=== PATIENT | female | born 1960 | race Caucasian/White ===

== ENCOUNTER 2019-11-11 07:01 | Observation (INO) | payer BC ==
[~2019-11-11] VITALS: Ht 177.8 cm; Wt 79.4 kg
[~2019-11-11 07:01] MED LIST: ALAWAY10 ML OPHTHALMIC; ASPIRIN325 PO; FISH OIL 1,0001 EAC9 PO; MULTIVITAMINS1 EAC7 PO; PEPCID20 MG PO; VITAMIN D325 MC3 PO; ZYRTEC10 M5 PO
[2019-11-11 08:26] VITALS: BP 129/76
--- NOTE | 2019-11-11 11:52 | H ---
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 HISTORY OF PRESENT ILLNESS: The patient is a 59-year-old who underwent laparoscopic appendectomy for acute appendicitis on the 10/16/2019. The patient had an uneventful recovery. The patient had fairly classic preop symptoms. Her appendix was inflamed and also fairly enlarged on CT scan preoperatively. 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 The path report describes approximately 70% of the mucosa contained the lesion, was also involving the proximal resection margin. The patient has not had any prior colon issues. She has had colonoscopy in the past. The patient underwent colonoscopy today and says she has already received a bowel prep. She is recommended to proceed with partial right colectomy to ensure that the finding of the low grade mucinous neoplasia is fully removed. The colonoscopy is done today reportedly by the patient to be normal. PAST MEDICAL HISTORY: The patient does not have any heart disease. The patient does not have any high blood pressure, no diabetes. No bleeding issue. No blood clot. No history of lung disease. No history of liver disease. No history of kidney disease. The patient did have paroxysmal atrial fibrillation in the past and this was diagnosed in 2009. She has not had any medication for atrial fib for about 5 years now. She has been in sinus rhythm. Two years ago, the patient had some tachycardia. She went to the ER and she was found to be in normal sinus rhythm. The patient has some family history of atrial fibrillation. There is no family history of colon cancer. Grandmother has some minor colon issues. FAMILY HISTORY: There is heart disease in the family. PAST SURGICAL HISTORY: The patient has had wisdom tooth removed; treatment of varicose veins, endovenous procedure and also treatment for deviated septum. The patient has a history of GERD. MEDICATIONS AND ALLERGIES: She is not on any medications, not allergic to anything. 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 She does not smoke or [facility] [address] [place] [address] HISTORY AND PHYSICAL Name: CARMEN MARION Room #: [facility] M.R.#: [id number] Admission: Attend Phys: Godfrey Sevilla MD Discharge: Date of : 64 Report #: [id number]. REVIEW OF SYSTEMS: No chest pain. No shortness of breath. No tachycardia. No numbness or weakness. The patient is eating well. Bowels are working. PHYSICAL EXAMINATION: GENERAL: The patient is a well-nourished female in no acute distress. HEENT: Pupils react to light. Extraocular muscles are intact. Sclerae are nonicteric. LUNGS: Clear to auscultation. HEART: Regular rate and rhythm. No murmur or gallop. ABDOMEN: Soft, nondistended, nontender. Her incision has healed well from the laparoscopic appendectomy. EXTREMITIES: No cyanosis, clubbing or edema. Motor and sensory exams are unremarkable. IMPRESSION AND RECOMMENDATION: The patient is a 59-year-old who had an acute appendicitis that was treated with laparoscopic appendectomy. The specimen came back with appendix containing low-grade mucinous neoplasia approximately 70% of the mucosa, also involving the proximal margin. The patient is recommended to have further resection of the right colon, likely removing of the cecum and resecting of the terminal ileum performing ileocolostomy. I do not think that the patient can have just cecectomy without having to remove the ileocecal valve. The patient understands this. Risk of bleeding and infection was discussed. Risk of anastomotic leak was discussed. The patient understands the procedure and wishes to proceed. The patient had bowel prep on Sunday and she is going to stay on her clear liquids and come again for surgery tomorrow. <ELECTRONICALLY SIGNED> By: Godfrey Sevilla MD 11/11/19 1152 [id number] Godfrey Sevilla MD /nt
[2019-11-11 13:00] VITALS: BP 113/60
[2019-11-11 16:31] VITALS: BP 122/65
[2019-11-11 18:54] VITALS: BP 118/66
[2019-11-12 03:47] VITALS: BP 99/64
--- NOTE | 2019-11-12 03:53 | NUR ---
Assumed pt care at 1900. A/OX4, VSS.Up ad stephen on hallway several times before HS. C/o pain to abd 5/10 medicated with Fentanyl/Simpson interchangeably with relief reported. No N/V or passing flatus yet. IVF infusing via RFA w/o problems. Pt has 3 midline lap sites on abd covered w/bandaids and one on RLQ covered in gauze C/D/I. Call light/personal items within reach, encouraged to call as needed for help. Resting at this time, will continue to monitor pt.
[2019-11-12 07:10] VITALS: BP 118/64
[2019-11-12] MEDS ORDERED: NORCO 5-325 TA1 EAC1 PO (14:07)
[2019-11-12 15:00] VITALS: BP 118/64
--- NOTE | 2019-11-12 15:37 | NUR ---
Assumed pt care this am pt is up ad stephen and passing gas. Was on clear liquids then progressed to full liquids and this was tolerated well. Pt has been ambulating the halls with a steady gait. No nausea or vomiting has been noted, Lap sites are c/d/i, DC intructions and prescriptions given. POC followed with no signs or verbalizations of distress have been noted. IV removed. Pain was managed with medication. Pt is now dc
--- NOTE | 2019-11-17 14:07 | PATH ---
[facility] [place] [address] PATHOLOGY RPT PROCEDURE Name: CARMEN MARION Room #: 448-P [facility] Luo#: [id number] Admission: 11/11/19 Date of : 64 Discharge: 11/12/19 Report #: [id number] Path Case #: [id number] [facility] Accession Number: [id number] . 01 Material submitted: . colon - TIE ON APPENDICEAL ORIFICE NEXT TO APPENDIX STAPLE PARTIAL RIGHT COLON. Modifiers: right . 01 Clinical history: . Tumor of appendix . 02 Diagnosis: Small and large bowel "subtotal right hemicolectomy": - NEGATIVE FOR RESIDUAL CARCINOMA. - Focal fat necrosis, foreign body giant cell reaction, and acute and chronic inflammation involving soft tissue at appendiceal stump. . Lymph nodes, "mesenteric - eleven", excision: - Reactive follicular lymphoid hyperplasia. - Negative for metastatic neoplasm. - Please see comment. LB 11/17/2019 1335 Local . 02 Comment: The patient's history of a low grade appendiceal mucinous neoplasm, diagnosed at the time of appendectomy at an outside facility is noted. According to the outside report neoplasm involved the appendiceal/proximal margin. Evaluation of the margin revealed no residual neoplasm, and there is no evidence of neoplastic disease within the specimen or the eleven sampled lymph nodes. (MLK/db; 11/14/2019) . 02 Electronically signed: . Cata De La Rosa MD, Pathologist NPI- [id number] . 01 Gross description: . The specimen is received in formalin, labeled "Carmen Marion, partial right colon, tie on the appendiceal orifice next to appendix stapled line". Received is a partial right hemicolectomy specimen consisting of a segment of small bowel measuring 4.3 cm in length by 2.5 cm in diameter attached to a segment of cecum measuring 7.5 cm in length and ranges in diameter from 3.5 to 4.5 cm. Both margins are stapled closed. The serosal surface of the small bowel is pink-art and smooth in appearance. The serosal surface of the colon is pink-art in appearance with overlying adhesions near the distal margin. There is a suture present near the previous appendectomy site, which has a staple [place] [address] PATHOLOGY RPT PROCEDURE Name: CARMEN MARION Room #: 448-P [facility] Amol M.RCeli#: [id number] Admission: 11/11/19 Date of : 64 Discharge: 11/12/19 Report #: [id number] Path Case #: [id number] pericolic fat measures up to 3.5 cm in thickness. The mesenteric margin is inked orange. The specimen is opened along the antimesenteric line and placed into formalin for overnight fixation prior to sectioning. ([facility]; 11/11/2019) . After overnight fixation, further opening of the specimen reveals light sierra mucosa with normal architectural folds within the small bowel. The ileocecal valve is pale sierra and slightly lipomatous in appearance. The colonic mucosa is light sierra to sierra-green in appearance with normal architectural folds. No distinct nodules or lesions are noted grossly. Extensive dissection and palpation of the attached pericolic and mesenteric fat reveals numerous lymph nodes ranging in size from 0.2 to 0.5 cm in maximum dimensions. The specimen is submitted representatively as follows: . A1 proximal margin, en face A2 distal margin, en face A3 perpendicular section through mesenteric margin A4-A8 entire staple line at previous appendectomy site A9 small bowel mucosa A10 ileocecal valve A11 colonic mucosa A12-A13 intact lymph nodes A14 one bisected lymph node. ([facility]; 11/12/2019) QA/QA 11/17/2019 1335 Local . 02 Pathologist provided ICD-10: K55.069, K52.9, R59.9, D12.1 . 02 CPT . 382639 Specimen Comment: A courtesy copy of this report has been sent to [phone], [phone] Specimen Comment: [phone] Specimen Comment: Report sent to / DR LAFLEUR Performed at: 01 [facility] [address] [id number] MD Kwan Chambers MD Phone: [phone] Performed at: 02 [place] [id number] [address] [id number] MD Laith Davenport MD Phone: [phone]
--- NOTE | 2019-11-19 15:34 | O ---
[facility] Malia [address]ultz [facility] [place] [address] OPERATIVE REPORT Name: CARMEN MARION Room #: 448-P [facility] M..#: [id number] Admission: 11/11/19 Attend Phys: Godfrey Sevilla MD Discharge: 11/12/19 Date of : 64 Report #: [id number] THIS REPORT FOR: cc: Jerson Levy MD,Jerson Sevilla,Godfrey Pizarro MD ~ CC: Jerson Sevilla DATE OF SERVICE: 11/11/2019 PREOPERATIVE DIAGNOSIS: Low-grade mucinous neoplasia of the appendix, status post laparoscopic appendectomy with positive proximal margin. POSTOPERATIVE DIAGNOSIS: Low-grade mucinous neoplasia of the appendix, status post laparoscopic appendectomy with positive proximal margin. PROCEDURES PERFORMED: Laparoscopic-assisted right partial colectomy. ANESTHESIA: General. SURGEON: Godfrey Sevilla MD COMPLICATIONS: None. ESTIMATED BLOOD LOSS: 10 mL. DESCRIPTION OF PROCEDURE: The patient did receive preoperative IV antibiotic. Abdomen was prepped and draped in sterile fashion. The patient voided before surgery and no Cannon was placed. Timeout was performed. A 0.25% Marcaine was used to anesthetize the skin and subcutaneous tissue just above the umbilicus. I wanted to avoid the previous fascia opening inferior to the umbilicus. The fascia above the umbilicus was identified, grasped with hemostat. This was then opened under visualization, 0 Vicryl suture placed on the fascia. Veress needle was then placed through the peritoneum. Abdominal cavity was insufflated with CO2. After creating pneumoperitoneum, an 11 mm trocar was placed into the pneumoperitoneum. No harm to underlying tissue. The patient's previous 5 mm trocar was used for a laparoscopic appendectomy, was utilized for the 5 mm trocar. The patient's right colon was identified fairly flexible. There was some adhesion of the proximal right colon to the abdominal wall. These adhesions were fairly elongated and lengthy and this adhesions were taken down. The right colon was then mobilized. The area of the wall where the previous inflammation from the appendectomy was noticed. The peritoneum was removed from this area. The small bowel was easily mobilized. Hepatic flexure was also mobilized and taken off the lateral wall. The patient's colon was fairly easily [address] [address] OPERATIVE REPORT Name: CARMEN MARION Room #: 448-P [facility] Amol Luo#: [id number] Admission: 11/11/19 Attend Phys: Godfrey Sevilla MD Discharge: 11/12/19 Date of : 64 Report #: [id number] mobilized. The duodenum was visualized. At this point, after a full mobilization of the small bowel, cecum and the ascending colon, a small incision about an inch and a half was made in the right lateral abdomen close to the level of the umbilicus. The skin was anesthetized. The incision was carried through the subcu into the anterior fascia. The anterior rectus fascia was incised. The muscle was retracted medially and the posterior fascia was then opened. I extended it slightly lateral into the oblique muscles. After an opening was made, the cecum was then able to be grasped with Shavon and then was able to be brought out through the small incision. The ascending colon was also brought out and also the small bowel. A clamp was used to tie the fat around where the previous appendix staple was and a Vicryl tie was placed around this, placed at this site to have the pathologist be aware where the base of the appendix was. Small bowel was divided. The peritoneum over the mesentery side of it was divided with cautery and then the terminal ileum was isolated. Terminal ileum was then divided about an inch and a half from the ileocecal valve distance goodman. This was divided with an Endo-KAYLAH 55 mm in the blue staple. The distal resection margin was then also isolated. The mesentery of small bowel was dissected free. There is ____ that was identified. This was preserved. About a 3 cm of the mesentery distal to this was removed for specimen. No lymph node enlargement identified. The cecum was completely removed and the ascending colon was partially removed. Where the ascending colon became more normal size caliber, the ascending colon was divided with the KAYLAH 55 stapler. This is approximately the mid part of the ascending colon. The blood supply to the cecum was then isolated, clamped and then ligated with 2-0 Vicryl tie. The main arterial supply was doubly ligated. The ileum and the ascending colon lined up nicely and a staple anastomosis was performed. The serosa was sewn about 2 inches from the corner of the previous KAYLAH staple line and the bowel was brought together with 3-0 Vicryl suture. The corner of the staple was then excised. The KAYLAH was then placed into the ileum and also the ascending colon. The KAYLAH was brought together closed and then after making sure nothing was posterior, the KAYLAH was deployed. A [id number] hookup was then visualized. There was no bleeding from the staple line. The enterotomy for the KAYLAH was then closed slightly staggered manner. Allis was placed across the enterotomy and a TA 60 was then placed underneath the Allis clamp. TA-60 was then fired deployed. The part that was external to the TIA was trimmed off with the Ellis scissors. The crotch of the anastomosis was reinforced with a 3-0 Vicryl suture. The mesentery between the ileum and the ascending colon was closed with 3-0 Vicryl in running fashion. The bowel was then returned to the abdominal cavity without difficulty. This was irrigated prior to that. The posterior fascia was closed with 0 PDS in running fashion at the small cutdown site. The anterior fascia was then also brought together with 0 PDS in running fashion. The laparoscope was then replaced. The anastomosis was visualized. There was no bleeding identified. The bowel also set at a nice gentle curvature. CO2 was then evacuated. The trocars were then removed from the abdominal cavity. CO2 was removed as much as possible. The fascia defect at the umbilicus was closed with 0 Vicryl [id number] x 2. Skin was then [address] [address] OPERATIVE REPORT Name: CARMEN MARION Room #: 448-P [facility] Amol Luo#: [id number] Admission: 11/11/19 Attend Phys: Godfrey Sevilla MD Discharge: 11/12/19 Date of : 64 Report #: [id number] irrigated. The 4-0 PDS was used to close the small incision. 5-0 PDS was used to close the laparoscopic trocar site. Steri-Strip, Band-Aids applied. A 4 x 4 was placed on the cutdown site and Op-Site was placed over this. The patient tolerated the procedure well, extubated and taken to recovery room. <ELECTRONICALLY SIGNED> By: Godfrey Sevilla MD 11/19/19 1534 [id number] 1742 Godfrey Sevilla MD /nt
== END 2019-11-12 16:00 | disposition home or self-care (01) ==
LOC: OR 07:01 → 4S 11:46 → OR 13:26 → 4S 11-12 16:00
PROVIDERS: ADMIT Surgery
DX: C18.1 Malignant neoplasm of appendix (principal)
CPT/HCPCS: 50010; 50101; 50249; 50386; 50417; 50455; 50555; 50558; 51390; 51391; 51435; 52205; 52265; 53307; 53310; 56524; 56525; 56526; 62110; 62900; 65131; 70005